=== PATIENT | male | born 1990 | race Caucasian/White ===

== ENCOUNTER 2025-02-26 09:52 | Emergency (ER) | payer MEDICAID, SELFPAY ==
[2025-02-26 09:53] VITALS: BMI 29.0
[2025-02-26 10:15] VITALS: BP 140/97; PULSE 80; RESP 16; TEMP 36.7; O2SAT 98
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
[2025-02-26] MEDS: ACETAMINOPHEN 325 MG TABLET 650 MG PO (11:25)
[2025-02-26] MEDS: LIDOCAINE 5% 1 PATCH TOP (11:26)
[2025-02-26 11:57] VITALS: BP 140/78; PULSE 87; RESP 18; TEMP 36.8; O2SAT 99
== END 2025-02-26 11:58 | disposition home or self-care (01) ==
PROVIDERS: Emergency Provider Emergency Medicine
DX: M54.2 Cervicalgia (principal); M25.512 Pain in left shoulder
CPT/HCPCS: 72040; 72072; 72125; 99284; J3490; A9270